=== PATIENT | female | born 1975 | race Caucasian/White ===

== ENCOUNTER 2016-07-21 15:54 | Emergency (ER) | payer OTHER ==
[~2016-07-21] VITALS: Ht 157.5 cm; Wt 65.8 kg
[~2016-07-21 15:54] MED LIST: FLEXERIL10 MG PO; HYDROMORPHONE HC2 MG PO; IBUPROFEN800 MG PO; LEVOTHYROXIN0.125 M1 PO; LEVOTHYROXINE0.1 MG PO; LIOTHYRONINE SO5 MCG PO; MOBIC15 MG PO; PERCOCET 325 MG1 TA2 PO; VICODIN5-300 PO; VITAMIN D50000 IU PO; ZOFRAN 4 MG TABL4 MG PO
[2016-07-21 15:58] VITALS: BP 118/77
[2016-07-21] MEDS ORDERED: ARMOUR THYROID60 M1 PO (16:49)
[2016-07-21] MEDS ORDERED: METFORMIN HCL500 M4 PO (16:49)
--- NOTE | 2016-07-21 16:55 | ED HEAD/FACIAL INJ COMPLAINT ---
History of Present Illness General Chief Complaint: General Adult Stated Complaint: PT WAS SIB BY THE DR Source: patient, old records Exam Limitations: no limitations Vital Signs & Intake/Output Vital Signs & Intake/Output Vital Signs Date Time Temp Pulse Resp B/P B/P Pulse O2 O2 Flow FiO2 Mean Ox Delivery Rate 07/21 1558 98.8 84 15 118/77 98 Room Air Room Air Allergies Coded Allergies: MDX - Iodine (IODINE) (Severe, RASH, ANAPHYLAXIS 07/21/16) MDX - Lavender Oil (LAVENDER OIL) (Severe, RASH 07/21/16) MDX - Shellfish (SHELLFISH) (Severe, ANAPHYLAXIS 07/21/16) Uncoded Allergies: COSMETIC PRODUCTS (UNKNOWN 04/30/14) Reconcile Medications CYCLOBENZAPRINE HCL (Flexeril) 10 MG TAB 1 TAB PO Q8 PRN PAIN ERGOCALCIFEROL (VITAMIN D2) (Vitamin D2) 50,000 UNIT CAPSULE 1 CAP PO QW SUPPLEMENT (Reported) HYDROCODONE/ACETAMINOPHEN (Hydrocodon-Acetaminophen 5-325) (Unknown Strength) TABLET (Unknown Dose) PO PRN PAIN (Reported) HYDROMORPHONE HCL (Hydromorphone HCl) 2 MG TABLET 2 MG PO Q3P PRN PAIN SCALE 1 -5 Ibuprofen 800 MG TABLET 1 TAB PO Q6H PAIN Levothyroxine Sodium 100 MCG TABLET 0.1 MG PO DAILY AC THYROID (Reported) Meloxicam (Mobic) 15 MG TAB 1 TAB PO DAILY PRN PAIN Metformin HCl (Metformin HCl ER) 500 MG TAB.ER.24H 1 TAB PO BID DIABETES ( Reported) Ondansetron (Zofran 4 MG Tablet) 4 MG TAB 1 TAB PO PRN NAUSEA (Reported) Ondansetron (Zofran 4 MG Tablet) 4 MG TAB 1 TAB PO Q8 PRN NAUSEA Ondansetron (Zofran Odt) 4 MG TAB.RAPDIS 1 TAB SL TID NAUSEA OXYCODONE HCL/ACETAMINOPHEN (Percocet 5-325 MG Tablet) 325 MG/5 MG TAB 2 TAB PO Q3P PRN PAIN Thyroid,Pork ([place] Thyroid) 60 MG TABLET 1 TAB PO DAILY THYROID HEALTH ( Reported) Triage Note: PT SENT TO ED BY DR. DAVIS FOR EVALUATION OF CONCUSSION. PT HAS HISTORY OF MULTIPLE CONCUSSOINS IN THE PAST AND YESTERDAY GOT KNEE-ED IN THE POSTERIOR LEFT PART OF HEAD. +NAUSEA, -V, BLURRY VISION AND DIPLOPIA, +HEADACHE, LIGHTHEADED WITH POSITION CHANGE. L NECK PAIN, NO C-SPINE TENDERNESS. Triage Nurses Notes Reviewed? yes : No Patient currently breastfeeds: No HPI: 40-year-old female presents to ER for evaluation of a posterior headache associated nausea and photophobia and feeling dizzy after she states she was kneed in the back or head. 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 She is not taken anything for her symptoms. She states she's had a history of concussions in the past and states this feels similar. There is no loss of consciousness she denies any vomiting or vision changes. no Neck or back pain no other modifying factors or associated symptoms. (CORTEZ LOCKWOOD) Past History Travel History Traveled to [place] past 21 day No Medical History Any Pertinent Medical History? see below for history Neurological: CONCUSSIONS Renal: renal stones uti Endocrine: hypothyroidism AUTOMOTIVE FLEET SUPERVISOR/Reproductive: uterine fibroid tumor cervical atypical cells tx with ?LEEP procedure History of MRSA: No History of VRE: No History of CDIFF: No Surgical History Surgical History: non-contributory Psychosocial History Who do you live with Patient/Self Services at Home None What is your primary language Armenian Tobacco Use: Never used ETOH Use: denies use Illicit Drug Use: denies illicit drug use Family History Hx Contributory? No (CORTEZ LOCKWOOD) Review of Systems Review of Systems Constitutional: Reports: see HPI. All Other Systems: Reviewed and Negative Comments Review of systems: See HPI, All other systems negative. Constitutional, no chills no fever, no malaise HEENT: No visual changes no sore throat no congestion, Cardiovascular: No chest pain , no palpitation , Skin: no rashes, no change in skin Respiratory: No dyspnea no cough no sputum GI: No nausea no vomiting, no diarrhea, : No dysuria Muscle skeletal: No joint pain, no joint swelling, no back pain, no neck pain, Neurologic: No numbness no confusion, headache Psych: No stress Heme/endocrine: No bruising Immunology: No lymphadenopathy (CORTEZ LOCKWOOD) Physical Exam Physical Exam General Appearance: well developed/nourished, no apparent distress, alert, awake Cranial Nerves: normal hearing, normal speech, PERRL Comments: Well-developed well-nourished patient in no apparent distress. Head/Face: Atraumatic no scalp hematoma, L posterior scalp tendneress, no ecchymosis, no laceration, no maxillary/frontal sinus tenderness, no facial swelling Eyes: PERRL, EOMI, no conjunctival injection. No nystagmus Ear:External auditory canals clear, no erythema Nose: atraumatic.Normal inspection Throat: Moist mucous membranes.Pharynx normal. Neck: Supple, no lymphadenopathy, FROM Back: FROM Cardiovascular: Regular rate and rhythms no murmurs rubs Respiratory: No respiratory distress. Patient speaking in full complete sentences. Breath sounds clear to auscultation bilaterally: NO W/R/R Extremities: full range of motion Neuro: awake, alert, and oriented to person, place and time. There were no obvious focal neurologic abnormalities. Skin: Warm & dry;No appreciable rash on exposed skin Psych: Mood affect normal, normal memory normal judgment. (CORTEZ LOCKWOOD) Progress Differential Diagnosis: c-spine injury, facial fracture, globe injury, ICH, skull fracture Plan of Care: Current Medications Sig/Marlon Start time Last Medication Dose Stop Time Status Admin Ibuprofen 600 MG ONCE ONE 07/21 170 UNVr 07/21 (Motrin) 07/21 1701 165 Patient is declining CAT scan saying she is severely claustrophobic the injury occurred almost 24 hours ago I discussed with her symptoms are consistent with a concussion I discussed with her need for brain rest Tylenol Motrin Zofran for nausea, I advised follow-up with [facility]. Advised return to ER anytime sooner with any concerns answered all her questions and she feels comfortable this plan (CORTEZ LOCKWOOD) Departure Departure Time of Disposition: 1653 Disposition: HOME OR SELF CARE Condition: Stable Clinical Impression Primary Impression: Concussion Referrals: TIM YATES DO (PCP/Family) Additional Instructions: TYLENOL OR MOTRIN EVERY 4-6 HOURS. ZOFRAN IF NEEDED FOR NAUSEA. BRAIN REST DISCUSSED. LIMIT TV CELL PHONE COMPUTER USAGE. FOLLOW UP WITH CONCUSSION SPECIALIST DISCUSSED IF SYMPTOMS PERSIST: [facility]: [phone]. Departure Forms: Customer Survey Employee Industrial Accident General Discharge Information Prescriptions: Current Visit Scripts Ondansetron (Zofran Odt) 1 TAB SL TID #10 TAB (CORTEZ LOCKWOOD) PA/CONTRACTS ADVISOR Co-Sign Statement Statement: ED Attending supervision documentation- [] I saw and evaluated the patient. I have also reviewed all the pertinent lab results and diagnostic results. I agree with the findings and the plan of care as documented in the PA's/CONTRACTS ADVISOR's documentation. [X] I have reviewed the ED Record and agree with the PA's/CONTRACTS ADVISOR's documentation. [] Additions or exceptions (if any) to the PAs/CONTRACTS ADVISOR's note and plan are summarized below: [] (GAVIN LENZ,ROSALIO Mcfadden)
[2016-07-21] MEDS ORDERED: ZOFRAN ODT4 M1 SL (16:56)
== END 2016-07-21 17:02 ==
LOC: ERH 15:54
DX: S06.0X0A Concussion without loss of consciousness, initial encounter (principal); W51.XXXA Accidental striking against or bumped into by another person, initial encounter; Y93.43 Activity, gymnastics; Y92.39 Other specified sports and athletic area as the place of occurrence of the external cause